=== PATIENT | male | born 1985 | race Caucasian/White ===

== ENCOUNTER 2024-01-10 19:53 | Emergency (ER) | payer SELFPAY ==
--- NOTE | 2024-01-10 19:56 | XRR_ITS ---
PROCEDURE INFORMATION: Exam: XR Chest Exam date and time: 01/10/2024 8:15 PM Age: 38 years old Clinical indication: Other: Heart fluttering; Additional info: Cp TECHNIQUE: Imaging protocol: Radiologic exam of the chest. Views: 1 view. COMPARISON: No relevant prior studies available. FINDINGS: Lungs: Unremarkable. No consolidation. Pleural spaces: Unremarkable. No pleural effusion. No pneumothorax. Heart/Mediastinum: Unremarkable. No cardiomegaly. Bones/joints: Unremarkable. XR/XR chest 1V portable [id number] IMPRESSION: No acute findings.
[2024-01-10 20:04] VITALS: BP 131/84; PULSE 109; RESP 16; TEMP 37.3; O2SAT 97; BMI 32.6
[2024-01-10 20:21] LABS: Basophils % 0.1 %; Eosinophils % 0.4 %; Hematocrit 44.9 % (37-53); Lymphocytes # 1.1 10^3/uL (0.8-4.8); Lymphocytes % 15.6 %; Mean Corpuscular HGB Conc 33.6 g/dL (30-55); Mean Corpuscular Volume 83.3 fl (82-101); Monocytes # 0.4 10^3/uL (0.2-0.9); Monocytes % 5.3 %; Neutrophils # 5.46 10^3/uL (1.8-7.7); Neutrophils % 78.2 %; Nucleated Red Blood Cells % 0 %; Platelet Count 240 10^3/cmm (157-399); Red Blood Count 5.39 10^6/uL (3.85-5.65); White Blood Count 6.99 10^3/uL (3.29-11.43)
[2024-01-10 20:37] LABS: Partial Thromboplastin Time 25.9 SECONDS (23.9-36.7)
[2024-01-10 20:45] LABS: Alanine Aminotransferase 21 U/L (0-41); Albumin Level 4.6 g/dL (3.5-5.2); Alkaline Phosphatase 100 U/L (40-130); Anion Gap 15.6 (5-19); Aspartate Amino Transferase 22 U/L (0-40); Blood Urea Nitrogen 11 mg/dL (6-20); Calcium 9.2 mg/dL (8.5-10.5); Carbon Dioxide 26 mmol/L (22-29); Chloride 104 mmol/L (98-107); Globulin 2.7 g/dL (1.3-4.6); Glomerular Filtration Rate 84.5 mL/min (90-130); Glucose 101 mg/dL (65-115); Lipase 25 U/L (13-60); Osmolality Calculated 294 mOsm/kg (285-295); Potassium 3.6 mmol/L (3.5-5.1); Sodium 142 mmol/L (136-145); Total Bilirubin 0.7 mg/dL (0.15-1.2); Total Protein 7.3 g/dL (6.6-8.7)
[2024-01-10 20:47] LABS: Troponin(5th) Baseline 21 ng/L (0-15)
--- NOTE | 2024-01-10 22:12 | W.ED.CHESTPA ---
HPI - Chest Pain General: Chief Complaint: Chest Pain Stated Complaint: sob fluttery in the chest and pressure Time Seen by Provider: 01/10/24 21:16 History of Present Illness: Patient presents to the ER today because he was mildly short of breath, had a fluttery heart rate and a tightness in his chest. Patient does not have any history of respiratory or cardiac problems himself. Patient is never had these feelings before. Patient not having the symptoms currently. They started earlier today and then quit by the time he got to the ER. Patient still wanted to be checked out. Review of Systems General: Reports: 10 or more systems reviewed and unremarkable except in HPI and below Physical Exam Const: COMMON NORMALS: no acute distress, average body habitus, patient oriented x3, no limitations, healthy appearing, alert and well nourished HENMT: COMMON NORMALS: normocephalic, atraumatic, hearing grossly normal bilaterally, external ears normal, EAC's normal, Normal external nose present, moist oral mucous membranes and oropharynx normal HEAD & SCALP: normocephalic and atraumatic NOSE: Normal external nose present EXTERNAL EAR: Yes external ears normal EXTERNAL AUDITORY CANAL: EAC's normal Eye: COMMON NORMALS: Equal, round and reactive pupils present, EOMs intact bilaterally, conjunctivae normal and no scleral icterus CONJUNCTIVA: Yes conjunctivae normal PUPIL: Yes Equal, round and reactive pupils present Neck/C-Spine: COMMON NORMALS: no JVD Chest: COMMONS NORMALS: normal inspection of the chest and normal palpation of entire chest wall Resp: COMMON NORMALS: normal respiratory effort, No retractions, No use of accessory muscles and clear to auscultation bilaterally AUSCULTATION: clear to auscultation bilaterally Cardio: COMMON NORMALS: no JVD, regular rate, regular rhythm, S1 normal heart sound present, S2 normal heart sound present, No gallops present (Cardio), No clicks present (Cardio), No murmurs present (Cardio) and No rub (Cardio) RATE: regular rate RHYTHM: regular rhythm HEART SOUNDS: S1 normal heart sound present and S2 normal heart sound present GI: COMMON NORMALS: Normal to inspection, nondistended, normoactive bowel sounds present, Soft to palpation, non-tender, No hepatosplenomegaly present and no masses PALPATION: Yes Soft to palpation and Yes No hepatosplenomegaly present Neuro: COMMON NORMALS: patient oriented x3 SENSORIUM/ORIENTATION: Yes alert Course Vital Signs: Vital signs: Vital Signs Temperature 99.2 F 01/10/24 20:04 Pulse Rate 93 01/10/24 22:43 Respiratory Rate 18 01/10/24 22:43 Blood Pressure 124/83 01/10/24 22:43 Pulse Oximetry 96 01/10/24 22:43 Oxygen Delivery Me thod Room Air 01/10/24 22:43 MDM - Chest Pain Medical Decision Making Patient was worked up in normal chest pain fashion with serial EKGs, serial enzymes, chest x-ray, all of which was benign. During patient stay patient was mildly tachycardic at approximately 100 105 bpm but did not show any irregularity. Patient be discharged home to follow-up with his PCP for further evaluation testing. Differential Diagnosis Unlikely acute massive pulmonary embolism, acute respiratory failure, acute myocardial infarction, cardiac arrest or sudden cardiac Medical Records I reviewed the patient's medical records. Lab Data I reviewed the patient's lab results. 01/10/24 20:14 01/10/24 20:14 Radiology Impressions Chest X-Ray 01/10/24 19:56 IMPRESSION: No acute findings. Laboratory Results WBC 6.99 10^3/uL (3.29-11.43) 01/10/24 20:14 RBC 5.39 10^6/uL (3.85-5.65) 01/10/24 20:14 Hgb 15.10 g/dL (11.27-16.99) 01/10/24 20:14 Hct 44.9 % (37-53) 01/10/24 20:14 MCV 83.3 fl (82-101) 01/10/24 20:14 MCH 28.0 pg (27-33) 01/10/24 20:14 MCHC 33.6 g/dL (30-55) 01/10/24 20:14 RDW 13.0 % (12.1-15.1) 01/10/24 20:14 Plt Count 240 10^3/cmm (157-399) 01/10/24 20:14 MPV 11.0 fL (7.4-10.4) H 01/10/24 20:14 Neut % (Auto) 78.2 % 01/10/24 20:14 Lymph % (Auto) 15.6 % 01/10/24 20:14 [place] % (Auto) 5.3 % 01/10/24 20:14 Eos % (Auto) 0.4 % 01/10/24 20:14 Baso % (Auto) 0.1 % 01/10/24 20:14 Neut # (Auto) 5.46 10^3/uL (1.8-7.7) 01/10/24 20:14 Lymph # (Auto) 1.1 10^3/uL (0.8-4.8) 01/10/24 20:14 [place] # (Auto) 0.4 10^3/uL (0.2-0.9) 01/10/24 20:14 Eos # (Auto) 0.0 10^3/uL (0.0-0.8) 01/10/24 20:14 Baso # (Auto) 0.0 10^3/uL (0.0-0.1) 01/10/24 20:14 Nucleated RBC % (auto) 0 % 01/10/24 20:14 Nucleated RBCs # 0.0 /100WBC 01/10/24 20:14 APTT 25.9 SECONDS (23.9-36.7) 01/10/24 20:14 Sodium 142 mmol/L (136-145) 01/10/24 20:14 Potassium 3.6 mmol/L (3.5-5.1) 01/10/24 20:14 Chloride 104 mmol/L (98-107) 01/10/24 20:14 Carbon Dioxide 26 mmol/L (22-29) 01/10/24 20:14 Anion Gap 15.6 (5-19) 01/10/24 20:14 BUN 11 mg/dL (6-20) 01/10/24 20:14 Creatinine 1.0 mg/dL (0.7-1.2) 01/10/24 20:14 GFR Calculation 84.5 mL/min (90-130) L 01/10/24 20:14 Glucose 101 mg/dL (65-115) 01/10/24 20:14 Calculated Osmolality 294 mOsm/kg (285-295) 01/10/24 20:14 Calcium 9.2 mg/dL (8.5-10.5) 01/10/24 20:14 Total Bilirubin 0.7 mg/dL (0.15-1.2) 01/10/24 20:14 AST 22 U/L (0-40) 01/10/24 20:14 ALT 21 U/L (0-41) 01/10/24 20:14 Alkaline Phosphatase 100 U/L (40-130) 01/10/24 20:14 Troponin T Baseline 21 ng/L (0-15) H 01/10/24 20:14 Troponin T 120 Minute 14.49 ng/L (0-15) 01/10/24 22:00 Delta Troponin T -6.51 ABS# (0-10) L 01/10/24 22:00 Total Protein 7.3 g/dL (6.6-8.7) 01/10/24 20:14 Albumin 4.6 g/dL (3.5-5.2) 01/10/24 20:14 Globulin 2.7 g/dL (1.3-4.6) 01/10/24 20:14 Lipase 25 U/L (13-60) 01/10/24 20:14 TSH 1.62 uIU/mL (0.27-4.20) 01/10/24 20:14 All radiology interpretation(s) finalized by discharge Discharge Plan Discharge Patient Disposition: Home Clinical Impression: Atypical chest pain, Heart palpitations Condition: Stable Discharge Orders: Discharge ED (Routine); Ordered 01/10/24 Ordered By: Edvin Haider Patient Instructions: Chest Pain - Noncardiac, Heart Palpitations (ED) Activity Restrictions/Additional Instructions: All of your lab work performed in ER come back normal. You may benefit from further workup and evaluation. Please follow-up with your family practice doctor within the next 7 to 10 days to start this process. If your symptoms worsen or return please feel free to return to the ER. Coding Level of Care Code ED Fruit Or Nut Farmer for Arcelia Sal
[2024-01-10 22:14] LABS: Thyroid Stimulating Hormone 1.62 uIU/mL (0.27-4.20)
[2024-01-10 22:35] LABS: Troponin 5 2HR 14.49 ng/L (0-15)
[2024-01-10 22:36] LABS: Troponin 5 2HR Delta -6.51 ABS# (0-10)
[2024-01-10 22:43] VITALS: BP 124/83; PULSE 93; RESP 18; O2SAT 96
== END 2024-01-10 22:43 | disposition home or self-care (01) ==
PROVIDERS: Emergency Medicine; Emergency Provider Emergency Medicine
DX: R07.89 Other chest pain (principal); R00.2 Palpitations
CPT/HCPCS: 36415; 71045; 80053; 83690; 84443; 84484; 85025; 85730; 99285

== ENCOUNTER 2025-04-28 17:19 | Emergency (ER) | payer BC, SELFPAY ==
[2025-04-28 17:24] VITALS: BP 130/82; PULSE 93; RESP 16; TEMP 36.8; O2SAT 98; BMI 37.8
[2025-04-28 17:40] VITALS: BP 116/76; PULSE 83; RESP 16; TEMP 36.9; O2SAT 95
--- NOTE | 2025-04-28 17:52 | CTR_ITS ---
PROCEDURE INFORMATION: Exam: CT Orbits With Contrast Exam date and time: 04/28/2025 6:36 PM Age: 39 years old Clinical indication: Eye pain and ocular pain; Right; C/O RT eye/ocular pain worsened with eye movement starting yesterday evening. States that it feels like sand in his eye. ; Additional info: Right eye pain with movement TECHNIQUE: Imaging protocol: Computed tomography of the orbits with contrast. Radiation optimization: All CT scans at this facility use at least one of these dose optimization techniques: automated exposure control; mA and/or kV adjustment per patient size (includes targeted exams where dose is matched to clinical indication); or iterative reconstruction. Contrast material: OMNI 350; Contrast volume: 100 ml; Contrast route: INTRAVENOUS (IV); COMPARISON: l spine RADIATION DOSE METRICS: Total DLP (mGy-cm): 365.78 FINDINGS: Paranasal sinuses: No significant air-fluid levels noted in the visualized sinuses. Orbital cavities: Orbits are normal and the globes are unremarkable. Bones/joints: No acute osseous abnormality. Soft tissues: Mild periorbital soft tissue swelling. No intra or extra conal extension. CT/CT orbit [place] con [id number] IMPRESSION: Mild right periorbital cellulitis.
[2025-04-28] MEDS: fluorescein 1 mg Strip EYE-RIGHT (18:18)
--- NOTE | 2025-04-28 18:19 | W.ED.EYEPROB ---
HPI - Eye Problem General: Chief complaint: Eye Problems Stated complaint: rt eye inj Time Seen by Provider: 04/28/25 17:33 History of Present Illness: 39-year-old male patient sent from urgent care. He noticed eye pain and redness last night. He took his contact out before bed. He noticed redness. He thought he might have pinkeye, but no discharge. No matting. Some pain with eyeball movement, especially up and out. Redness to the eye. A sandpaper feeling in the eye as well. Some light sensitivity. He can see with mildly blurred vision. He was sent for potential imaging from urgent care due to pain with eye movement. Related Data Previous Rx's ?Medication ?Instructions ?Recorded ciprofloxacin HCl 0.3 % eye drops 1 drp ophthalmic (eye) Q4H #2.5 mL 04/28/25 doxycycline hyclate 100 mg tablet 100 mg PO BID 10 days #20 tabs 04/28/25 ketorolac 10 mg tablet 10 mg PO TID PRN pain #10 tabs 04/28/25 Allergies Allergy/AdvReac Type Severity Reaction Status Date / Time No Known Allergies Allergy Verified 04/28/25 17:23 [facility] ED PFSH: Social History Smoking and tobacco/nicotine status: never used tobacco/nicotine Physical Exam Const: COMMON NORMALS: no acute distress GENERAL APPEARANCE: cooperative; not ill appearing Eye: COMMON NORMALS: Equal, round and reactive pupils present and EOMs intact bilaterally GENERAL EYE: normal light reflex CONJUNCTIVA: Yes conjunctival abnormal positive right conjunctival injection; without discharge and without subconjunctival hemmorhages CORNEA: Yes fluorescein used (No abrasion seen) PUPIL: Yes Equal, round and reactive pupils present DIRECT OPHTHALMOSCOPY: Yes normal light reflex Chest: CHEST: Yes Symmetrical chest wall rise Resp: COMMON NORMALS: normal respiratory effort Cardio: COMMON NORMALS: regular rate and regular rhythm RATE: regular rate RHYTHM: regular rhythm Course Vital Signs: Vital signs: Vital Signs Temperature 98.4 F 04/28/25 17:40 Pulse Rate 84 04/28/25 20:53 Respiratory Rate 16 04/28/25 17:40 Blood Pressure 126/75 04/28/25 20:53 Pulse Oximetry 97 04/28/25 20:53 Oxygen Delivery Me thod Room Air 04/28/25 18:54 MDM - Eye Problem Medical Decision Making Pain significantly reduced with tetracaine drops. No foreign body or significant corneal defect on fluorescein staining and Parra lamp exam however. Still some pain with eye movement. Intraocular pressure at the bedside is 19. Funduscopic exam is not remarkable. CT of the orbit is pending. CT with IV contrast reveals mild right periorbital cellulitis. No evidence of orbital cellulitis or abscess. Labs are normal as above. He will get antibiotic eyedrops, oral doxycycline for periorbital cellulitis. He will follow-up with ophthalmology. He is to call Tuesday. He knows to return for worsening symptoms or vision loss. Lab Data 04/28/25 18:15 04/28/25 18:[address] 04/28/25 17:52 IMPRESSION: Mild right periorbital cellulitis. Laboratory Results WBC 9.43 10^3/uL (3.29-11.43) 04/28/25 18:15 RBC 5.61 10^6/uL (3.85-5.65) 04/28/25 18:15 Hgb 15.60 g/dL (11.27-16.99) 04/28/25 18:15 Hct 47.2 % (37-53) 04/28/25 18:15 MCV 84.1 fl (82-101) 04/28/25 18:15 MCH 27.8 pg (27-33) 04/28/25 18:15 MCHC 33.1 g/dL (30-55) 04/28/25 18:15 RDW 14.0 % (12.1-15.1) 04/28/25 18:15 Plt Count 231 10^3/cmm (157-399) 04/28/25 18:15 MPV 11.1 fL (7.4-10.4) H 04/28/25 18:15 Neut % (Auto) 76.9 % 04/28/25 18:15 Lymph % (Auto) 17.6 % 04/28/25 18:15 [place] % (Auto) 4.6 % 04/28/25 18:15 Eos % (Auto) 0.3 % 04/28/25 18:15 Baso % (Auto) 0.4 % 04/28/25 18:15 Neut # (Auto) 7.25 10^3/uL (1.8-7.7) 04/28/25 18:15 Lymph # (Auto) 1.7 10^3/uL (0.8-4.8) 04/28/25 18:15 [place] # (Auto) 0.4 10^3/uL (0.2-0.9) 04/28/25 18:15 Eos # (Auto) 0.0 10^3/uL (0.0-0.8) 04/28/25 18:15 Baso # (Auto) 0.0 10^3/uL (0.0-0.1) 04/28/25 18:15 Nucleated RBC % (auto) 0 % 04/28/25 18:15 Nucleated RBCs # 0.0 /100WBC 04/28/25 18:15 ESR 4 mm/hr (0-10) 04/28/25 18:15 Sodium 140 mmol/L (136-145) 04/28/25 18:15 Potassium 3.9 mmol/L (3.5-5.1) 04/28/25 18:15 Chloride 101 mmol/L (98-107) 04/28/25 18:15 Carbon Dioxide 25 mmol/L (22-29) 04/28/25 18:15 Anion Gap 17.9 (5-19) 04/28/25 18:15 BUN 11 mg/dL (6-20) 04/28/25 18:15 Creatinine 0.7 mg/dL (0.7-1.2) 04/28/25 18:15 GFR Calculation 126.9 mL/min (90-130) 04/28/25 18:15 Glucose 79 mg/dL (65-115) 04/28/25 18:15 Calculated Osmolality 288 mOsm/kg (285-295) 04/28/25 18:15 Lactic Acid 0.8 mmol/L (0.5-2.2) 04/28/25 18:15 Calcium 9.6 mg/dL (8.5-10.5) 04/28/25 18:15 Total Bilirubin 0.9 mg/dL (0.15-1.2) 04/28/25 18:15 AST 21 U/L (0-40) 04/28/25 18:15 ALT 28 U/L (0-41) 04/28/25 18:15 Alkaline Phosphatase 86 U/L (40-130) 04/28/25 18:15 C-Reactive Protein 3.5 mg/L (0.0-4.9) 04/28/25 18:15 Total Protein 7.8 g/dL (6.6-8.7) 04/28/25 18:15 Albumin 4.5 g/dL (3.5-5.2) 04/28/25 18:15 Globulin 3.3 g/dL (1.3-4.6) 04/28/25 18:15 All radiology interpretation(s) finalized by discharge Discharge Plan Discharge Patient Disposition: Home Clinical Impression: Periorbital cellulitis of right eye, Conjunctivitis Condition: Stable Prescriptions: New doxycycline hyclate 100 mg tablet 100 mg PO BID 10 Days Qty: 20 0RF ciprofloxacin HCl 0.3 % drops 1 drp ophthalmic (eye) Q4H Qty: 2.5 0RF ketorolac 10 mg tablet 10 mg PO TID PRN (Reason: pain) Qty: 10 0RF Discharge Orders: Discharge ED (Routine); Ordered 04/28/25 Ordered By: Edgar Alvarez Referrals: Kiko Mays [Physician, Opthalmology] - 1-3 days Patient Instructions: Periorbital Cellulitis (ED), Conjunctivitis (ED), Opioid Safety, Pain Management Activity Restrictions/Additional Instructions: Antibiotics as directed. Use both drops and oral antibiotics. Call the eye clinic in the morning for a follow-up appointment early this coming week. Return for worsening vision, worsening pain despite treatment, spreading redness, any other concerning symptoms. Print Language: Latvian Coding Level of Care Code ED Mechanical Engineering Technologist for Arcelia Sal
[2025-04-28 18:23] LABS: Basophils % 0.4 %; Eosinophils % 0.3 %; Hematocrit 47.2 % (37-53); Lymphocytes # 1.7 10^3/uL (0.8-4.8); Lymphocytes % 17.6 %; Mean Corpuscular HGB Conc 33.1 g/dL (30-55); Mean Corpuscular Hemoglobin 27.8 pg (27-33); Mean Corpuscular Volume 84.1 fl (82-101); Mean Platelet Volume 11.1 fL (7.4-10.4); Monocytes # 0.4 10^3/uL (0.2-0.9); Monocytes % 4.6 %; Neutrophils # 7.25 10^3/uL (1.8-7.7); Neutrophils % 76.9 %; Nucleated Red Blood Cells % 0 %; Platelet Count 231 10^3/cmm (157-399); Red Blood Count 5.61 10^6/uL (3.85-5.65); White Blood Count 9.43 10^3/uL (3.29-11.43)
[2025-04-28 18:33] LABS: Erythrocyte Sedimentation Rate 4 mm/hr (0-10)
[2025-04-28] MEDS: iohexol 350 mg/mL 500 mL Btl (per mL) IV (18:38)
[2025-04-28 18:49] LABS: Lactic Sepsis W/Reflex 0.8 mmol/L (0.5-2.2)
[2025-04-28 18:50] LABS: Alanine Aminotransferase 28 U/L (0-41); Albumin Level 4.5 g/dL (3.5-5.2); Alkaline Phosphatase 86 U/L (40-130); Anion Gap 17.9 (5-19); Aspartate Amino Transferase 21 U/L (0-40); Blood Urea Nitrogen 11 mg/dL (6-20); C Reactive Protein 3.5 mg/L (0.0-4.9); Calcium 9.6 mg/dL (8.5-10.5); Carbon Dioxide 25 mmol/L (22-29); Chloride 101 mmol/L (98-107); Creatinine Clr Calc Pharmacy 176.1995; Globulin 3.3 g/dL (1.3-4.6); Glomerular Filtration Rate 126.9 mL/min (90-130); Glucose 79 mg/dL (65-115); Osmolality Calculated 288 mOsm/kg (285-295); Potassium 3.9 mmol/L (3.5-5.1); Sodium 140 mmol/L (136-145); Total Bilirubin 0.9 mg/dL (0.15-1.2); Total Protein 7.8 g/dL (6.6-8.7)
[2025-04-28 18:54] VITALS: BP 109/71; PULSE 90; O2SAT 96
[2025-04-28 19:57] VITALS: BP 115/80; PULSE 87; O2SAT 96
[2025-04-28 20:14] VITALS: BP 103/79; PULSE 89; O2SAT 97
[2025-04-28] MEDS: cefTRIAXone 1,000 mg SDV 1000 MG IVP (20:51)
[2025-04-28] MEDS: ketorolac 30 mg/mL INJ IVP (20:51)
[2025-04-28 20:53] VITALS: BP 126/75; PULSE 84; O2SAT 97
== END 2025-04-28 20:57 | disposition home or self-care (01) ==
PROVIDERS: Emergency Provider Emergency Medicine
DX: L03.213 Periorbital cellulitis (principal); H10.9 Unspecified conjunctivitis
CPT/HCPCS: 36415; 70481; 80053; 83605; 85025; 85651; 86140; 96374; 96375; 99285; J0696; J1885